=== PATIENT | male | born 1975 | race Caucasian/White ===

== ENCOUNTER 2016-11-09 14:51 | Emergency (ER) | payer OTHER ==
[~2016-11-09] VITALS: Ht 172.7 cm; Wt 77.2 kg
[2016-11-09 15:02] VITALS: BP 136/85
[2016-11-09] MEDS ORDERED: HYDROcodone/APAP 5/325MG 1 TAB TABLET PO ONE (15:15)
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
--- NOTE | 2016-11-09 15:25 | RAD ---
EXAM: Left hand 3 views. HISTORY: Fall, left hand pain. COMPARISON: None. FINDINGS: No fractures are identified. Joint spaces and alignment are maintained. IMPRESSION: 1. No fracture.
[2016-11-09] MEDS ORDERED: NAPR275T59 PO (15:36)
[2016-11-09] MEDS ORDERED: BACI3.5O8 OS (15:36)
== END 2016-11-09 16:01 | disposition home or self-care (01) ==
LOC: ER 14:51
DX: S63.695A Other sprain of left ring finger, initial encounter (principal); S63.693A Other sprain of left middle finger, initial encounter; S80.811A Abrasion, right lower leg, initial encounter; F31.9 Bipolar disorder, unspecified; W19.XXXA Unspecified fall, initial encounter; Y93.89 Activity, other specified; Y99.8 Other external cause status; Y92.89 Other specified places as the place of occurrence of the external cause
CPT/HCPCS: 73130; 99284

== ENCOUNTER 2017-08-13 20:57 | Emergency (ER) | payer OTHER ==
[~2017-08-13] VITALS: Ht 172.7 cm; Wt 77.2 kg
[2017-08-13 20:57] VITALS: BP 138/87
[~2017-08-13 20:57] MED LIST: BACI3.5O8 OS; NAPR275T59 PO
[2017-08-13 21:36] LABS: BASO % 1 % (0-3); EOS # 0.1 x10^3/uL (0.0-0.7); EOS % 1 % (0-3); HEMATOCRIT 45.9 % (39.0-53.0); HEMOGLOBIN 15.9 g/dL (13.0-17.5); LYMPH # 1.5 x10^3/uL (1.0-4.8); LYMPH % 30 % (24-48); MEAN CORPUSCULAR HEMOGLOBIN 32 pg (25-35); MEAN CORPUSCULAR HGB CONC 35 g/dL (31-37); MEAN CORPUSCULAR VOLUME 93 fL (79-100); MONO # 0.5 x10^3/uL (0.0-1.1); MONO % 10 % (0-9); NEUT % 58 % (31-73); PLATELET COUNT 222 x10^3/uL (140-400); RED BLOOD COUNT 4.94 x10^6/uL (4.30-5.70); WHITE BLOOD COUNT 5.2 x10^3/uL (4.0-11.0)
[2017-08-13 21:49] LABS: ALBUMIN 3.6 g/dL (3.4-5.0); AMPHETAMINE/METHAMPHETAMINE NEG (NEG); BARBITURATES NEG (NEG); BENZODIAZEPINES NEG (NEG); CALCIUM 9.1 mg/dL (8.5-10.1); CANNABINOIDS NEG (NEG); COCAINE NEG (NEG); CREATININE 0.8 mg/dL (0.7-1.3); GFR 107.6; MAGNESIUM 1.8 mg/dL (1.8-2.4); METHADONE NEG (NEG); OPIATES NEG (NEG); PHENCYCLIDINE NEG (NEG); POTASSIUM 3.6 mmol/L (3.5-5.1); TOTAL BILIRUBIN 0.4 mg/dL (0.2-1.0); TOTAL PROTEIN 7.1 g/dL (6.4-8.2)
[2017-08-13 21:52] LABS: ACETAMIN < 2.0 mcg/mL (10-30); ETHANOL < 10 mg/dL (0-10); SALIC 0.7 mg/dL (2.8-20.0)
[2017-08-13 22:07] LABS: BILIRUBIN,URINE NEG (NEG); CLARITY,URINE HAZY; COLOR,URINE YELLOW; GLUCOSE,URINE NEG (NEG)
[2017-08-13 22:08] LABS: BACTERIA,URINE 0 /HPF (0-FEW); NITRITE,URINE NEG (NEG); UROBILINOGEN,URINE 0.2 mg/dL (0.2 mg/dL)
--- NOTE | 2017-08-13 23:45 | EKG ---
[address] [address] Test Date: 2017-08-13 Test Time: 22:05:11 Pat Name: SANDOR FRIEDMAN Department: Room: Gender: M Chief Science Officer: : 1975 Requested By: JOSE MILLAN Order Number: [id number] Reading MD: Measurements Intervals [place] Rate: 58 P: -21 DE: 162 QRS: 15 QRSD: 96 T: 0 QT: 408 QTc: 404 Interpretive Statements SINUS RHYTHM NO SPECIFIC ECG ABNORMALITIES RI6.01 No previous ECG available for comparison
[2017-08-14] MEDS ORDERED: CITALOPRAM 10 MG TABLET. PO ONE (01:45)
[2017-08-14] MEDS ORDERED: DIVALPROEX SODIUM 125 MG TABLET.DR. PO ONE (01:45)
--- NOTE | 2017-08-14 05:11 | PHYS DOC ---
Past History Past Medical History: Bipolar, Hypertension Past Surgical History: No Surgical History Alcohol Use: Occasionally Drug Use: None Adult General Chief Complaint Chief Complaint: SUICDAL IDEATION HPI HPI Patient is a 41-year-old gentleman who presents here today secondary to depression, suicidal ideation. Patient reports that he see her within the past 2 and half years he's had multiple suicidal ideations and multiple attempts. Patient reports she is bipolar with PTSD. Patient reports that today he had suicidal ideation which was self interrupted. Patient reports he'll plan to hang himself and there was a noose reconstructed of arterial tape when EMS arrived. Patient reports that he notified his nurse practitioner who was on- call for his suicidal thoughts and she called EMS to transfer him here to the ED for further assistance. Patient is currently here is been medically cleared by me and we will see if we can have psychiatry assessment for appropriate placement. Patient currently denies any other symptomology. Patient has any fevers shakes chills nausea vomiting diarrhea chest pain terns of breath, cold or rhinorrhea. Review of systems: Constitutional: Denies fever or chills Eyes: Denies change in visual acuity, redness, or eye pain HENT: Denies nasal congestion or sore throat All other review systems are negative except as documented in the history of present illness portion. Physical exam: Constitutional: Well developed, well nourished, no acute distress, non-toxic appearance. HENT: Normocephalic, atraumatic, bilateral external ears normal, nose normal. Eyes: EOMI, conjunctiva normal, no discharge. Neck: Normal range of motion, no tenderness, supple, no stridor. Cardiovascular:Heart rate regular rhythm Lungs & Thorax: Bilateral breath sounds clear to auscultation no respiratory distress Abdomen: Bowel sounds normal, soft, no tenderness, no masses, no pulsatile masses. Skin: Warm, dry, no erythema, no rash. Back: No tenderness, no CVA tenderness. Extremities: No tenderness, no cyanosis, no clubbing, ROM intact, no edema. Neurologic: Alert and oriented X 3, normal motor function, normal sensory function, no focal deficits noted. Psychologic: Affect normal, judgement normal, mood normal. Assessment and plan This is a 41-year-old gentleman who presents here today with suicidal ideation. Patient was evaluated by our tele psychiatry service and they've recommended inpatient treatment for the patient. Patient's been medically cleared by me. Patient's labs have all been unremarkable. Patient's normal CBC, CMP, aspirin and Tylenol levels. Patient is agreeable is currently a voluntary transfer for admission for further psychiatric treatment. Current Medications Current Medications Current Medications Medications (Trade) Dose Ordered Sig/Elton Start Time Stop Time Status Last Admin Dose Admin Citalopram Hydrobromide (CeleXA) 10 mg 1X ONCE 08/14/17 01:45 08/14/17 01:47 DC 08/14/17 02:18 10 MG Divalproex Sodium (Depakote) 750 mg 1X ONCE 08/14/17 01:45 08/14/17 01:47 DC 08/14/17 01:58 750 MG Allergies Allergies Allergies Coded Allergies Type Severity Reaction Last Updated Verified No Known Drug Allergies 11/09/16 No Current Patient Data Vital Signs Vital Signs Date Time Temp Pulse Resp B/P (MAP) Pulse Ox O2 Delivery O2 Flow Rate FiO2 08/13/17 20:57 98.3 72 18 98 Room Air Lab Results Laboratory Tests Test 08/13/17 21:20 White Blood Count 5.2 x10^3/uL (4.0-11.0) Red Blood Count 4.94 x10^6/uL (4.30-5.70) Hemoglobin 15.9 g/dL (13.0-17.5) Hematocrit 45.9 % (39.0-53.0) Mean Corpuscular Volume 93 fL (79-100) Mean Corpuscular Hemoglobin 32 pg (25-35) Mean Corpuscular Hemoglobin Concent 35 g/dL (31-37) Red Cell Distribution Width 13.0 % (11.5-14.5) Platelet Count 222 x10^3/uL (140-400) Neutrophils (%) (Auto) 58 % (31-73) Lymphocytes (%) (Auto) 30 % (24-48) Monocytes (%) (Auto) 10 % (0-9) H Eosinophils (%) (Auto) 1 % (0-3) Basophils (%) (Auto) 1 % (0-3) Neutrophils # (Auto) 3.0 x10^3uL (1.8-7.7) Lymphocytes # (Auto) 1.5 x10^3/uL (1.0-4.8) Monocytes # (Auto) 0.5 x10^3/uL (0.0-1.1) Eosinophils # (Auto) 0.1 x10^3/uL (0.0-0.7) Basophils # (Auto) 0.0 x10^3/uL (0.0-0.2) Urine Collection Type Unknown Urine Color Yellow Urine Clarity Hazy Urine pH 6.0 Urine Specific [place] 1.025 Urine Protein Trace (NEG-TRACE) Urine Glucose (UA) Neg mg/dL (NEG) Urine Ketones (Stick) Neg mg/dL (NEG) Urine Blood Neg (NEG) Urine Nitrite Neg (NEG) Urine Bilirubin Neg (NEG) Urine Urobilinogen Dipstick 0.2 mg/dL (0.2 mg/dL) Urine Leukocyte Esterase Neg (NEG) Urine RBC 1-2 /HPF (0-2) Urine WBC 1-4 /HPF (0-4) Urine Squamous Epithelial Cells None /LPF Urine Renal Epithelial Cells /LPF Urine Bacteria 0 /HPF (0-FEW) Urine Mucus Mod /LPF Sodium Level 143 mmol/L (136-145) Potassium Level 3.6 mmol/L (3.5-5.1) Chloride Level 105 mmol/L (98-107) Carbon Dioxide Level 27 mmol/L (21-32) Anion Gap 11 (6-14) Blood Urea Nitrogen 15 mg/dL (8-26) Creatinine 0.8 mg/dL (0.7-1.3) Estimated GFR (Cockcroft-Gault) 107.6 BUN/Creatinine Ratio 19 (6-20) Glucose Level 104 mg/dL (70-99) H Calcium Level 9.1 mg/dL (8.5-10.1) Magnesium Level 1.8 mg/dL (1.8-2.4) Total Bilirubin 0.4 mg/dL (0.2-1.0) Aspartate Amino Transferase (AST) 31 U/L (15-37) Alanine Aminotransferase (ALT) 64 U/L (16-63) H Alkaline Phosphatase 54 U/L (46-116) Total Protein 7.1 g/dL (6.4-8.2) Albumin 3.6 g/dL (3.4-5.0) Albumin/Globulin Ratio 1.0 (1.0-1.7) Salicylates Level 0.7 mg/dL (2.8-20.0) L Salicylate Last Dose Date Unknown Salicylate Last Dose Time Unknown Urine Opiates Screen Neg (NEG) Urine Methadone Screen Neg (NEG) Acetaminophen Level < 2.0 mcg/mL (10-30) L Acetaminophen Last Dose Date Unknown Acetaminophen Last Dose Time Unknown Urine Barbiturates Neg (NEG) Urine Phencyclidine Screen Neg (NEG) Urine Amphetamine/Methamphetamine Neg (NEG) Urine Benzodiazepines Screen Neg (NEG) Urine Cocaine Screen Neg (NEG) Urine Cannabinoids Screen Neg (NEG) Ethyl Alcohol Level < 10 mg/dL (0-10) Urine Ethyl Alcohol Neg (NEG) EKG EKG [] Radiology/Procedures Radiology/Procedures [] Course & Med Decision Making Course & Med Decision Making Pertinent Labs and Imaging studies reviewed. (See chart for details) [] Dragon Disclaimer Dragon Disclaimer This electronic medical record was generated, in whole or in part, using a voice recognition dictation system. Departure Departure: Impression: Primary Impression: Suicidal ideation Disposition: 65 XFER TO PSYCH HOSP/UNIT Condition: STABLE Referrals: PCP,UNKNOWN (PCP) JOSE MILLAN MD Aug 14, 2017 05:11
== END 2017-08-14 03:00 ==
LOC: ER 20:57
DX: R45.851 Suicidal ideations (principal); F31.9 Bipolar disorder, unspecified; F43.10 Post-traumatic stress disorder, unspecified; I10 Essential (primary) hypertension
CPT/HCPCS: 36415; 80053; 80307; 81001; 83735; 85025; 93005; 99285; G0480; G0479